=== PATIENT | male | born 1950 | race Caucasian/White ===

== ENCOUNTER 2019-03-13 06:37 | Emergency (ER) | payer MEDICARE, OTHER ==
[2019-03-13 07:04] LABS: BASOPHILS # (AUTO) 0.1 10^3/uL (0.0-0.1); BASOPHILS % (AUTO) 0.6 %; EOSINOPHILS # (AUTO) 0.3 10^3/uL (0.0-0.7); EOSINOPHILS % (AUTO) 1.8 %; HGB - HEMOGLOBIN 13.1 g/dL (14.0-18.0); LYMPHOCYTES # (AUTO) 3.7 10^3/uL (1.5-3.5); LYMPHOCYTES % (AUTO) 22.7 %; MEAN CORPUSCULAR HGB CONC 34.3 g/dL (32.0-36.0); MEAN CORPUSCULAR VOLUME 90.5 fL (80.0-94.0); MEAN PLATELET VOLUME 11.4 fL (7.4-11.4); MONOCYTES # (AUTO) 1.5 10^3/uL (0.0-1.0); MONOCYTES % (AUTO) 9.1 %; NEUTROPHILS # (AUTO) 10.6 10^3/uL (1.5-6.6); NEUTROPHILS % (AUTO) 65.2 %; PLT - PLATELET COUNT 260 10^3/uL (130-450); RED BLOOD COUNT 4.22 10^6/uL (4.70-6.10); RED CELL DISTRIBUTION WIDTH 13.5 % (12.0-15.0); WHITE BLOOD COUNT 16.2 x10^3/uL (4.8-10.8)
--- NOTE | 2019-03-13 07:09 | ED Physician Documentation ---
PD HPI GI BLEED - Stated complaint Stated Complaint: VOMITING - Chief complaint Chief Complaint: Abd Pain - History obtained from History obtained from: Patient - History of Present Illness Timing - onset: How many days ago (4) Timing - duration: Days (he had gotten piece of pork stuck in upper esophqagus 4 days ago when eating. He says it felt it was stuck and he vomited and could not drink fluids without vomiting. Lasted about an hour and then it felt that it went down slowly with sips of water. He was then able to swallow, though it hurt. Pain with swallowing for a day that improved slowly. He then felt okay for 1-2 days but did notice dark/black stool for a day. He then had normal brown stool yesterday. That lead up to early this morning when he felt some discomfort in upper esophagus again and started to spit up darker blood. He was not coughing nor vomiting, per patient, but would feel some phlegm well up in back of throat and then have to spit it up, and it had some phlegm and dark red blood. No clots.) Timing - details: Abrupt onset Associated symptoms: Black/tarry stool (3 days ago for a day.). No: Vomiting (spitting up from esophagus, and not vomiting per se.), Abdominal pain Contributing factors: No: Bad food, Travel, Recent antibiotics Similar symptoms before: Has not had sx before Recently seen: Not recently seen Review of Systems Constitutional: denies: Fever, Chills, Myalgias Nose: denies: Rhinorrhea / runny nose, Congestion Throat: denies: Sore throat Respiratory: denies: Cough GI: reports: Nausea. denies: Abdominal Pain, Vomiting, Diarrhea Neurologic: denies: Generalized weakness, Near syncope PD PAST MEDICAL HISTORY - Past Medical History Past Medical History: Yes Cardiovascular: Hypertension Endocrine/Autoimmune: Type 2 diabetes, HyPOthyroidism : Benign prostate hypertrophy Psych: Anxiety - Past Surgical History Past Surgical History: Yes General: Cholecystectomy HEENT: Cataracts - Present Medications Home Medications: Ambulatory Orders Medication Instructions Recorded Confirmed Aspirin 325 mg PO 03/13/19 Clopidogrel [Plavix] 03/13/19 Dutasteride/Tamsulosin HCl [Gayle 03/13/19 0.5-0.4 mg Capsule] Famotidine 20 mg PO DAILY #20 tablet 03/13/19 HYDROcodone/ACET 10/325 [[place] 10 1 each PO Q6H 03/13/19 03/13/19 mg/325 mg] Ibuprofen [Motrin] 800 mg PO Q8H PRN 03/13/19 03/13/19 Insulin Detemir [Levemir Flextouch] 03/13/19 Methocarbamol [Robaxin-750] 750 mg PO 03/13/19 Sucralfate [Carafate] 1 gm PO ACHS #20 tablet 03/13/19 Thyroid,Pork [[place] Thyroid] 03/13/19 Zolpidem Tartrate [Ambien] 10 mg PO 03/13/19 cloNIDine 0.1 MG PATCH 03/13/19 [[id number]] - Allergies Allergies/Adverse Reactions: Allergies Allergy/AdvReac Type Severity Reaction Status Date / Time No Known Drug Allergies Allergy Verified 03/13/19 06:50 - Social History Does the pt smoke?: Yes Smoking Status: Current every day smoker Does the pt drink ETOH?: No Does the pt have substance abuse?: No - Immunizations Immunizations are current?: Yes - POLST Patient has POLST: No PD ED PE NORMAL - Vitals Vital signs reviewed: Yes - General General: Alert and oriented X 3, No acute distress, Well developed/nourished - HEENT HEENT: Pharynx benign - Neck Neck: Supple, no meningeal sign, No adenopathy - Cardiac Cardiac: RRR, No murmur - Respiratory Respiratory: Clear bilaterally - Abdomen Abdomen: Soft, Non tender - Back Back: No CVA TTP - Derm Derm: Normal color, Warm and dry - Neuro Neuro: Alert and oriented X 3, No motor deficit, Normal speech Results - Vitals Vitals: Vital Signs - 24 hr 03/13/19 03/13/19 03/13/19 06:40 07:04 10:12 Temperature 36.8 C Heart Rate 111 H 97 87 Respiratory 29 H 19 24 Rate Blood Pressure 207/74 H 166/78 H 187/76 H O2 Saturation 96 95 97 03/13/19 12:19 Temperature Heart Rate 81 Respiratory 20 Rate Blood Pressure 160/83 H O2 Saturation 95 Oxygen O2 Source Room air - Labs Labs: Laboratory Tests 03/13/19 03/13/19 03/13/19 06:53 06:53 06:53 WBC 16.2 H RBC 4.22 L Hgb 13.1 L Hct 38.2 L MCV 90.5 MCH 31.0 MCHC 34.3 RDW 13.5 Plt Count 260 MPV 11.4 Neut # (Auto) 10.6 H Lymph # (Auto) 3.7 H Hopkins # (Auto) 1.5 H Eos # (Auto) 0.3 Baso # (Auto) 0.1 Absolute Nucleated RBC 0.00 Nucleated RBC % 0.0 Sodium 137 Potassium 3.3 L Chloride 102 Carbon Dioxide 23 Anion Gap 12.0 BUN 16 Creatinine 0.8 Estimated GFR (MDRD) 96 Glucose 163 H Calcium 8.5 Total Bilirubin 0.7 AST 19 ALT 18 Alkaline Phosphatase 74 Total Protein 6.8 Albumin 3.8 Globulin 3.0 Albumin/Globulin Ratio 1.3 Lipase 36 Blood Type O POSITIVE Blood Type Recheck Antibody Screen NEGATIVE 03/13/19 07:55 WBC RBC Hgb Hct MCV MCH MCHC RDW Plt Count MPV Neut # (Auto) Lymph # (Auto) Hopkins # (Auto) Eos # (Auto) Baso # (Auto) Absolute Nucleated RBC Nucleated RBC % Sodium Potassium Chloride Carbon Dioxide Anion Gap BUN Creatinine Estimated GFR (MDRD) Glucose Calcium Total Bilirubin AST ALT Alkaline Phosphatase Total Protein Albumin Globulin Albumin/Globulin Ratio Lipase Blood Type Blood Type Recheck O POSITIVE Antibody Screen - Rads (name of study) CT chest with gastrograffin Radiology: Prelim report reviewed (normal esophagus. Bibasilar infiltrates vs atelectasis), See rad report PD MEDICAL DECISION MAKING - ED course Complexity details: d/w patient, d/w skin care consultant (S/W Dr. Reeves, who would not want to scope the patient. Suggests esophagram.), other (S/W GI in [place], who said CT chest would be good alternative and if no wall defect, then could get by without scope. ) ED course: talked with Dr. Reeves, Surgery, who suggested flouro/esophagram to look for wall defect. Waited for Radiologist to come in and then get to study, but then the flouro machine broke. So could not do study. Talked again with Leandro, who does not want to scope patient for concern of worsening injury. I talked with GI in [place], who suggested CT with gastrograffin would be adequate test to look for wall defect/perforation. If no wall defect, and bleeding amount seems stable, then would not necessarily need scope right now (subsequent one could make sense). CT chest did not show esophageal injury. Bleeding tapered/stopped during his stay (not spitting up any more anyway). Patient comfortable with discharge. He is returning home to [place] in 2 days. expect black stool for a day or two. To return if large amount or spitting/vomiting blood again. Departure - Departure Disposition: 01 Home, Self Care Clinical Impression: Esophageal laceration, Esophageal bleeding not due to varices Condition: Stable Record reviewed to determine appropriate education?: Yes Prescriptions: Famotidine 20 mg PO DAILY #20 tablet Sucralfate [Carafate] 1 gm PO ACHS #20 tablet Comments: Soft diet only for the next 4 to 5 days. Coat the esophagus with suckle fate 4 times a day for the next 5 days. Use an acid reducing medicine such as famotidine daily for a week or 2. Follow-up with your primary care back home at the end of this week, call him to set up an appointment. Recheck if worsening symptoms. Presumed the injury of the esophagus will heal itself over and stop bleeding today into tomorrow. You likely have some black stool later today and tomorrow but it should taper off after that. Recheck if you have significant amount of blood rectally or you have increased amount that you are spitting up or you feel pain or lightheadedness. Discharge Date/Time: 03/13/19 12:38
[2019-03-13 07:17] LABS: ALBUMIN 3.8 g/dL (3.2-5.5); ALBUMIN/GLOBULIN RATIO 1.3 (1.0-2.2); BILIRUBIN,TOTAL 0.7 mg/dL (0.2-1.0); CALCIUM 8.5 mg/dL (8.5-10.3); CREATININE 0.8 mg/dL (0.6-1.2); TOTAL PROTEIN 6.8 g/dL (6.7-8.2)
[2019-03-13] MEDS ORDERED: FAMOTIDINE 20 MG/2 ML VIAL IVP STA (08:04)
[2019-03-13] MEDS ORDERED: TRANEXAMIC ACID 1,000 MG in SODIUM CHLORIDE 0.9% 100ML 100 ML IV STA (08:04)
[2019-03-13] MEDS ORDERED: IOVERSOL 320 100 ML VIAL IVP ONE ×2 (10:55→11:32)
--- NOTE | 2019-03-13 11:34 | CT Report ---
Reason: possible esophageal tear/injury from food Procedure Date: 03/13/2019 Accession Number: [id number] / [id number] Procedure: CT - CHEST W CPT Code: FULL RESULT: EXAM: CT CHEST WITH CONTRAST EXAM DATE: 03/13/2019 11:15 AM. CLINICAL HISTORY: Possible esophageal tear/injury, from food, and a 68-year-old male. COMPARISONS: None. TECHNIQUE: Urgent axial helical CT imaging was performed through the chest. IV contrast: 80 mL Optiray 320. Oral contrast given as well. Reconstructions: Coronal and sagittal. In accordance with CT protocol optimization, one or more of the following dose reduction techniques were utilized for this exam: automated exposure control, adjustment of mA and/or KV based on patient size, or use of iterative reconstructive technique. FINDINGS: Lungs/Pleura: Patchy areas of infiltrate both lower lobes, left greater than right as well as minimally in the right middle lobe and anterior aspect of the left upper lobe inferiorly. No pleural effusion or pneumothorax bilaterally. No pulmonary nodules or masses. Mediastinum: Normal. No adenopathy or masses. The heart and great vessels are normal. Bones: Unremarkable for age. No acute process or metastatic disease. Visualized Abdomen: Prior cholecystectomy. Visualized upper abdomen otherwise unremarkable. Other: Esophagus unremarkable. IMPRESSION: Patchy bibasilar infiltrates, most suggestive of pneumonia, left greater than right. Unremarkable appearance of the esophagus. No posttraumatic abnormality, perforation or other abnormality noted. [facility]
[2019-03-13 12:20] VITALS: BP 160/83
== END 2019-03-13 12:38 | disposition home or self-care (01) ==
LOC: ED 06:37
DX: K22.8 Other specified diseases of esophagus (principal); I10 Essential (primary) hypertension; E11.9 Type 2 diabetes mellitus without complications; F17.200 Nicotine dependence, unspecified, uncomplicated; Z79.4 Long term (current) use of insulin
CPT/HCPCS: 36415; 71260; 80053; 83690; 85025; 86850; 86900; 86901; 96365; 96375; 99284; 99285; Q9967